=== PATIENT | male | born 1985 | race Asian ===

== ENCOUNTER 2018-08-09 17:39 | Emergency (ER) | payer OTHER ==
[~2018-08-09] VITALS: Ht 180.3 cm; Wt 79.4 kg
[2018-08-09 18:04] VITALS: BP 115/78; TEMP 98.1
[2018-08-09 19:53] LABS: PLATELET COUNT 198 K/uL (142-355)
[2018-08-09 19:57] LABS: POTASSIUM 3.8 mmol/L (3.6-5.2)
== END 2018-08-09 20:47 | disposition home or self-care (01) ==
LOC: ED 17:39
PROVIDERS: Emergency Medicine
DX: R42 Dizziness and giddiness (principal); R00.1 Bradycardia, unspecified
CPT/HCPCS: 36415; 80053; 80307; 81000; 85027; 93005; 96372; 99283; J2405

== ENCOUNTER 2019-11-23 14:13 | Emergency (ER) | payer OTHER ==
[~2019-11-23] VITALS: Ht 180.3 cm; Wt 79.8 kg
[2019-11-23 14:19] VITALS: BP 196/84; TEMP 97.4
== END 2019-11-23 15:10 | disposition home or self-care (01) ==
LOC: ED 14:13
DX: L73.1 Pseudofolliculitis barbae (principal); L02.01 Cutaneous abscess of face
CPT/HCPCS: 99282

== ENCOUNTER 2020-07-05 22:57 | Emergency (ER) | payer OTHER ==
[~2020-07-05] VITALS: Ht 180.3 cm; Wt 80.7 kg
[2020-07-05 23:36] LABS: PLATELET COUNT 174 K/uL (142-355)
[2020-07-05 23:37] LABS: POTASSIUM 3.7 mmol/L (3.6-5.2)
[2020-07-06 00:56] VITALS: BP 125/88; TEMP 98.5
== END 2020-07-06 00:56 | disposition home or self-care (01) ==
LOC: ED 22:57
PROVIDERS: Emergency Medicine
DX: R53.1 Weakness (principal); R11.0 Nausea
CPT/HCPCS: 80053; 80307; 81000; 85027; 96360; 96375; 99284; J2405

== ENCOUNTER 2020-10-29 11:06 | Emergency (ER) | payer OTHER ==
[~2020-10-29] VITALS: Ht 180.3 cm; Wt 75.8 kg
[2020-10-29 11:16] VITALS: TEMP 98.4
[2020-10-29 12:12] LABS: PLATELET COUNT 159 K/uL (142-355)
[2020-10-29 12:19] LABS: POTASSIUM 3.8 mmol/L (3.6-5.2)
[2020-10-29 12:30] VITALS: BP 118/74
== END 2020-10-29 12:41 | disposition home or self-care (01) ==
LOC: ED 11:06
PROVIDERS: Family Medicine
DX: G44.209 Tension-type headache, unspecified, not intractable (principal); R42 Dizziness and giddiness
CPT/HCPCS: 80053; 85027; 93005; 99284

== ENCOUNTER 2020-11-02 11:28 | Emergency (ER) | payer OTHER ==
[~2020-11-02] VITALS: Ht 180.3 cm; Wt 75.7 kg
[2020-11-02 11:40] VITALS: TEMP 97.5
[2020-11-02 12:57] LABS: PLATELET COUNT 171 K/uL (142-355)
[2020-11-02 13:03] LABS: POTASSIUM 3.3 mmol/L (3.6-5.2)
[2020-11-02 13:28] VITALS: BP 136/84
== END 2020-11-02 13:30 | disposition home or self-care (01) ==
LOC: ED 11:28
PROVIDERS: Hospitalist
PROC: 2W38X1Z Immobilization of Right Upper Extremity using Splint (ICD-10-PCS; principal; 2020-11-02)
DX: S42.91XA Fracture of right shoulder girdle, part unspecified, initial encounter for closed fracture (principal); W18.39XA Other fall on same level, initial encounter; Y92.89 Other specified places as the place of occurrence of the external cause
CPT/HCPCS: 36415; 80048; 80320; 85027; 96374; 96375; 99284; J1885; J2270; J2405

== ENCOUNTER 2020-11-17 18:13 | Emergency (ER) | payer OTHER | END 2020-11-17 18:39 | disposition home or self-care (01) | LOC: ED 18:13 | DX: M25.511 Pain in right shoulder (principal) | CPT/HCPCS: 99281 ==

== ENCOUNTER 2020-11-29 13:54 | Emergency (ER) | payer OTHER ==
[~2020-11-29] VITALS: Ht 180.3 cm; Wt 75.8 kg
[2020-11-29 14:06] VITALS: TEMP 97.4
[2020-11-29 15:17] VITALS: BP 122/76
== END 2020-11-29 15:18 | disposition home or self-care (01) ==
LOC: ED 13:54
DX: G62.89 Other specified polyneuropathies (principal); M79.2 Neuralgia and neuritis, unspecified
CPT/HCPCS: 96372; 99282; J1885

== ENCOUNTER 2023-07-01 11:58 | Emergency (ER) | payer OTHER ==
[~2023-07-01] VITALS: Ht 180.3 cm; Wt 81.6 kg
[2023-07-01 12:00] VITALS: TEMP 97.3
[2023-07-01 13:09] VITALS: BP 110/71
== END 2023-07-01 13:10 | disposition home or self-care (01) ==
LOC: ED 11:58
DX: S39.012A Strain of muscle, fascia and tendon of lower back, initial encounter (principal); M54.30 Sciatica, unspecified side; W01.0XXA Fall on same level from slipping, tripping and stumbling without subsequent striking against object, initial encounter; Y99.0 Civilian activity done for income or pay
CPT/HCPCS: 99282; J1885